=== PATIENT | female | born 1940 | race Caucasian/White ===

== ENCOUNTER 2022-07-06 13:00 | Inpatient (IN) | payer OTHER ==
[~2022-07-06] VITALS: Ht 154.9 cm; Wt 118.7 kg
[2022-07-06 14:26] LABS: Basophils # (auto) 0 10 ^3/uL (0-0.2); Basophils % (auto) 0.4 % (0.0-2.0); Eosinophils # (auto) 0 10 ^3/uL (0-0.8); Eosinophils % (auto) 0.1 % (0.0-7.0); Hemoglobin 14.4 g/dL (12.2-16.2); Lymphocytes # (auto) 0.7 10 ^3/uL (0.4-5.4); Lymphocytes % (auto) 13.5 % (10.0-50.0); Mean Corpuscular Hemoglobin 28.2 pg (28.0-32.0); Monocytes # (auto) 0.5 10 ^3/uL (0-1.3); Monocytes % (auto) 9.7 % (0.0-12.0); Neutrophils # (auto) 3.9 10 ^3/uL (1.6-8.6); Neutrophils % (auto) 76.3 % (37.0-80.0); Nucleated Red Blood Cells % 0.1 %; Red Blood Cells 5.11 10^6/uL (4.0-5.20); Red Cell Distribution Width 15.4 % (11.8-14.3); White Blood Cell 5.1 10^3/uL (4.4-10.8)
[2022-07-06 14:45] LABS: Calcium 8.2 mg/dL (8.5-10.1)
[2022-07-06 14:51] LABS: BUN/Creatinine Ratio 14.4 (10.0-20.0); Bilirubin, Total 0.8 mg/dL (0.2-1.0); Total Protein 6.1 g/dL (6.4-8.2)
[2022-07-06 14:53] LABS: Lactic Acid w/Reflex 2.8 mmol/L (0.4-2.0)
[2022-07-06 15:54] LABS: INR 1.05 (0.9-1.15); Partial Thromboplastin Time 28.2 sec (24.6-33.4)
[2022-07-06] MEDS ORDERED: POTASSIUM CHL 20 Meq TABLET PO ONE (16:00)
[2022-07-06] MEDS ORDERED: IOHEXOL 350 MG/ML 100ML IJ ONE (16:25)
[2022-07-06] MEDS ORDERED: SODIUM CHLORIDE 0.9% 500 ML IV ONE (20:15)
[2022-07-06] MEDS ORDERED: DEXTROSE (50%) 50ML SYRG IV PRN (22:30)
[2022-07-06] MEDS ORDERED: ONDANSETRON HCL 4 MG/2 ML VIAL IV PRN (22:30)
[2022-07-06] MEDS ORDERED: methylPREDNISolone SOD SUCC 125 MG/2 ML VL IV ONE (22:30)
[2022-07-06] MEDS ORDERED: DOCUSATE SOD 100 MG CAP PO PRN (22:30)
[2022-07-06] MEDS ORDERED: ACETAMINOPHEN 325 MG TAB PO PRN (22:30)
[2022-07-06] MEDS ORDERED: HYDROcodone-ACET 5/325MG TAB PO PRN (22:30)
[2022-07-06] MEDS ORDERED: CARVEDILOL 12.5 MG TAB PO ONE (22:45)
[2022-07-06] MEDS ORDERED: FUROSEMIDE 20 MG/2 ML VIAL IV ONE (22:45)
[2022-07-07] MEDS ORDERED: MORPHINE SULFATE INJ 2 MG/ml SYRG IV PRN
[2022-07-07] MEDS ORDERED: NITROGLYCERIN 0.4 MG SL TAB SL PRN
[2022-07-07 01:29] LABS: Urine Bacteria FEW /hpf (None Seen); Urine Blood Negative /uL (Negative); Urine Hyaline Cast FEW /lpf (0 - 2); Urine Specific Gravity 1.007 (1.001-1.035); Urine WBC <1 /hpf (0 - 5)
[2022-07-07] MEDS: InsuLIN REG 1unit/0.01ml Soln (100units/ml) SC SCH ×5 (01:57→23:31)
[2022-07-07] MEDS: ACCU-CHEK COMFORT CURVE STRIP VI SCH ×5 (06:09→23:21)
[2022-07-07] MEDS: SODIUM CHLOR 0.9% PF (SALINE LOCK) 10ML VIAL/SYR IV SCH ×3 (06:09→23:02)
[2022-07-07] MEDS: methylPREDNISolone SOD SUCC 40 MG/ML VL IV SCH ×3 (06:14→23:02)
[2022-07-07 07:08] LABS: Basophils # (auto) 0.1 10 ^3/uL (0-0.2); Basophils % (auto) 0.9 % (0.0-2.0); Eosinophils # (auto) 0 10 ^3/uL (0-0.8); Eosinophils % (auto) 0.4 % (0.0-7.0); Hematocrit 44.2 % (36.0-46.0); Hemoglobin 14.7 g/dL (12.2-16.2); Lymphocytes # (auto) 0.5 10 ^3/uL (0.4-5.4); Lymphocytes % (auto) 10.1 % (10.0-50.0); Mean Corpuscular Hgb Conc. 33.2 g/dL (32.0-36.0); Mean Corpuscular Volume 87.5 fL (80.0-100.0); Monocytes # (auto) 0.1 10 ^3/uL (0-1.3); Monocytes % (auto) 2.4 % (0.0-12.0); Neutrophils # (auto) 4.7 10 ^3/uL (1.6-8.6); Neutrophils % (auto) 86.2 % (37.0-80.0); Nucleated Red Blood Cells % 0.3 %; Red Blood Cells 5.05 10^6/uL (4.0-5.20); Red Cell Distribution Width 15.2 % (11.8-14.3); White Blood Cell 5.4 10^3/uL (4.4-10.8)
[2022-07-07 07:28] LABS: Albumin 2.7 g/dL (3.4-5.0); Calcium 8.1 mg/dL (8.5-10.1); Potassium 3.9 mmol/L (3.5-5.1)
[2022-07-07 07:32] LABS: BUN/Creatinine Ratio 18.3 (10.0-20.0); Bilirubin, Total 0.6 mg/dL (0.2-1.0); Total Protein 6.5 g/dL (6.4-8.2)
[2022-07-07] MEDS: FAMOTIDINE (10MG/ML) 2ML VL IV SCH (08:55)
[2022-07-07] MEDS: ASPirin 81 mg TAB PO SCH (08:55)
[2022-07-07] MEDS: CARVEDILOL 12.5 MG TAB PO SCH ×2 (08:56→23:03)
[2022-07-07] MEDS: ENOXAPARIN SOD 40 MG/0.4 ML SYRINGE SC SCH (08:57)
[2022-07-07 22:00] VITALS: BP 160/61
[2022-07-07 22:20] VITALS: BP 149/58
[2022-07-07] MEDS ORDERED: POTA-264 PO (22:41)
[2022-07-07] MEDS ORDERED: INSREG3 SC (22:41)
[2022-07-07] MEDS ORDERED: CLOP75TA70 PO (22:41)
[2022-07-07] MEDS ORDERED: ATEN50TA PO (22:41)
[2022-07-07] MEDS ORDERED: LOSA-39 PO (22:41)
[2022-07-07] MEDS ORDERED: MONT-8 PO (22:41)
[2022-07-07] MEDS ORDERED: FUR20T PO (22:41)
[2022-07-07] MEDS ORDERED: DILT60TA2 PO (22:41)
[2022-07-07] MEDS ORDERED: ATOR40TA52 PO (22:41)
[2022-07-07] MEDS ORDERED: GABA300C10 PO (22:41)
[2022-07-07 23:01] VITALS: BP 149/58
[2022-07-07] MEDS: ATORVASTATIN 20 MG TAB PO SCH (23:02)
[2022-07-08 05:00] VITALS: BP 136/62
[2022-07-08] MEDS: SODIUM CHLOR 0.9% PF (SALINE LOCK) 10ML VIAL/SYR IV SCH ×3 (05:28→22:26)
[2022-07-08] MEDS: methylPREDNISolone SOD SUCC 40 MG/ML VL IV SCH ×3 (05:28→22:21)
[2022-07-08] MEDS: ACCU-CHEK COMFORT CURVE STRIP VI SCH ×4 (05:34→23:53)
[2022-07-08] MEDS: InsuLIN REG 1unit/0.01ml Soln (100units/ml) SC SCH ×3 (05:42→17:37)
[2022-07-08 08:30] VITALS: BP 148/70
[2022-07-08] MEDS: ASPirin 81 mg TAB PO SCH (09:29)
[2022-07-08] MEDS: CARVEDILOL 12.5 MG TAB PO SCH ×2 (09:31→22:22)
[2022-07-08] MEDS: FAMOTIDINE (10MG/ML) 2ML VL IV SCH (09:31)
[2022-07-08] MEDS: ENOXAPARIN SOD 40 MG/0.4 ML SYRINGE SC SCH (09:31)
[2022-07-08 12:30] VITALS: BP 163/62
[2022-07-08 16:45] VITALS: BP 182/79
[2022-07-08] MEDS: hydrALAZINE HCL 20 MG/ML VL IV PRN (17:32)
[2022-07-08 20:52] VITALS: BP 182/79
[2022-07-08 22:00] VITALS: BP 132/57
[2022-07-08] MEDS: ATORVASTATIN 20 MG TAB PO SCH (22:21)
[2022-07-08] MEDS: AZITHROMYCIN 500MG/ 250ML 250 ML IV SCH (22:26)
[2022-07-08] MEDS: ALBUTEROL SULF 2.5 MG/0.5ML(0.5%) NEB SOLN NEB PRN (23:50)
[2022-07-08] MEDS: IPRATROPIUM BROM 0.5 MG/2.5ML INH SOL NEB PRN (23:50)
[2022-07-09] VITALS (8 sets, daily range): BP systolic 137–178; BP diastolic 57–75
[2022-07-09] MEDS: InsuLIN REG 1unit/0.01ml Soln (100units/ml) SC SCH ×5 (00:02→21:59)
[2022-07-09] MEDS: ACCU-CHEK COMFORT CURVE STRIP VI SCH ×3 (05:57→17:50)
[2022-07-09] MEDS: SODIUM CHLOR 0.9% PF (SALINE LOCK) 10ML VIAL/SYR IV SCH ×3 (06:17→22:10)
[2022-07-09] MEDS: methylPREDNISolone SOD SUCC 40 MG/ML VL IV SCH ×3 (06:17→22:05)
[2022-07-09] MEDS: hydrALAZINE HCL 20 MG/ML VL IV PRN ×2 (07:20→17:50)
[2022-07-09] MEDS: AZITHROMYCIN 500MG/ 250ML 250 ML IV SCH (09:28)
[2022-07-09] MEDS: FAMOTIDINE (10MG/ML) 2ML VL IV SCH (09:28)
[2022-07-09] MEDS: ASPirin 81 mg TAB PO SCH (09:28)
[2022-07-09] MEDS: CARVEDILOL 12.5 MG TAB PO SCH ×2 (09:29→22:05)
[2022-07-09] MEDS: ENOXAPARIN SOD 40 MG/0.4 ML SYRINGE SC SCH (10:00)
[2022-07-09] MEDS ORDERED: InsuLIN REG 1unit/0.01ml Soln (100units/ml) SC ONE (12:15)
[2022-07-09] MEDS ORDERED: guaiFENesin-DM 100/10mg/5ml SYR PO PRN (12:30)
[2022-07-09] MEDS: ALBUTEROL SULF 2.5 MG/0.5ML(0.5%) NEB SOLN NEB PRN (18:57)
[2022-07-09] MEDS: IPRATROPIUM BROM 0.5 MG/2.5ML INH SOL NEB PRN (18:57)
[2022-07-09] MEDS: INSULIN LANTUS (GLARGINE) 1 /0.01ml (100units/ml) SC SCH (21:51)
[2022-07-09] MEDS: ATORVASTATIN 20 MG TAB PO SCH (22:05)
[2022-07-10] MEDS: IPRATROPIUM BROM 0.5 MG/2.5ML INH SOL NEB PRN ×3 (00:24→22:49)
[2022-07-10] MEDS: ALBUTEROL SULF 2.5 MG/0.5ML(0.5%) NEB SOLN NEB PRN ×3 (00:24→22:49)
[2022-07-10 05:00] VITALS: BP 169/63
[2022-07-10] MEDS: InsuLIN REG 1unit/0.01ml Soln (100units/ml) SC SCH ×3 (05:53→18:12)
[2022-07-10] MEDS: SODIUM CHLOR 0.9% PF (SALINE LOCK) 10ML VIAL/SYR IV SCH ×3 (05:56→21:37)
[2022-07-10] MEDS: methylPREDNISolone SOD SUCC 40 MG/ML VL IV SCH ×3 (05:56→21:37)
[2022-07-10] MEDS: ACCU-CHEK COMFORT CURVE STRIP VI SCH ×4 (06:00→18:13)
[2022-07-10 06:40] LABS: BUN/Creatinine Ratio 38.9 (10.0-20.0); Calcium 8.7 mg/dL (8.5-10.1); Potassium 4.4 mmol/L (3.5-5.1)
[2022-07-10 09:00] VITALS: BP 155/67
[2022-07-10] MEDS: ENOXAPARIN SOD 40 MG/0.4 ML SYRINGE SC SCH (10:12)
[2022-07-10] MEDS: ASPirin 81 mg TAB PO SCH (10:12)
[2022-07-10] MEDS: AZITHROMYCIN 500MG/ 250ML 250 ML IV SCH (10:14)
[2022-07-10] MEDS: CARVEDILOL 12.5 MG TAB PO SCH ×2 (10:14→21:38)
[2022-07-10 13:00] VITALS: BP 171/78
[2022-07-10 17:00] VITALS: BP 168/76
[2022-07-10] MEDS: ATORVASTATIN 20 MG TAB PO SCH (21:37)
[2022-07-10] MEDS: INSULIN LANTUS (GLARGINE) 1 /0.01ml (100units/ml) SC SCH (21:39)
[2022-07-10 22:00] VITALS: BP 154/67
[2022-07-11] MEDS: ACCU-CHEK COMFORT CURVE STRIP VI SCH ×5 (00:02→23:57)
[2022-07-11] MEDS: hydrALAZINE HCL 20 MG/ML VL IV PRN ×2 (00:02→07:47)
[2022-07-11] MEDS: InsuLIN REG 1unit/0.01ml Soln (100units/ml) SC SCH ×5 (00:04→23:56)
[2022-07-11] MEDS: IPRATROPIUM BROM 0.5 MG/2.5ML INH SOL NEB PRN ×2 (04:45→20:42)
[2022-07-11] MEDS: ALBUTEROL SULF 2.5 MG/0.5ML(0.5%) NEB SOLN NEB PRN ×2 (04:45→20:42)
[2022-07-11 05:00] VITALS: BP 163/71
[2022-07-11 05:18] VITALS: BP 146/57
[2022-07-11] MEDS: SODIUM CHLOR 0.9% PF (SALINE LOCK) 10ML VIAL/SYR IV SCH ×3 (06:12→22:09)
[2022-07-11] MEDS: methylPREDNISolone SOD SUCC 40 MG/ML VL IV SCH ×3 (06:12→22:10)
[2022-07-11 09:00] VITALS: BP 184/81
[2022-07-11] MEDS: ASPirin 81 mg TAB PO SCH (10:06)
[2022-07-11] MEDS: CARVEDILOL 12.5 MG TAB PO SCH ×2 (10:07→22:12)
[2022-07-11] MEDS: ENOXAPARIN SOD 40 MG/0.4 ML SYRINGE SC SCH (10:07)
[2022-07-11 13:00] VITALS: BP 127/21
[2022-07-11 17:00] VITALS: BP 145/69
[2022-07-11 22:00] VITALS: BP 149/71
[2022-07-11] MEDS: dilTIAZem HCL 60 MG TAB PO SCH (22:11)
[2022-07-11] MEDS: ATORVASTATIN 20 MG TAB PO SCH (22:12)
[2022-07-11] MEDS: MONTELUKAST SODIUM 10 MG TAB PO SCH (22:12)
[2022-07-11] MEDS: INSULIN LANTUS (GLARGINE) 1 /0.01ml (100units/ml) SC SCH (23:56)
[2022-07-12 00:25] VITALS: BP 120/48
[2022-07-12 05:00] VITALS: BP 131/50
[2022-07-12] MEDS: SODIUM CHLOR 0.9% PF (SALINE LOCK) 10ML VIAL/SYR IV SCH ×3 (06:46→22:08)
[2022-07-12] MEDS: methylPREDNISolone SOD SUCC 40 MG/ML VL IV SCH ×3 (06:46→22:08)
[2022-07-12] MEDS: ACCU-CHEK COMFORT CURVE STRIP VI SCH ×3 (06:47→18:21)
[2022-07-12] MEDS: InsuLIN REG 1unit/0.01ml Soln (100units/ml) SC SCH ×3 (06:48→18:21)
[2022-07-12 09:00] VITALS: BP 160/68
[2022-07-12] MEDS ORDERED: ATENOLOL 50 MG TAB PO SCH (10:00)
[2022-07-12] MEDS: POTASSIUM CHL 10 Meq TABLET PO SCH (11:18)
[2022-07-12] MEDS: GABAPENTIN 300 MG CAP PO SCH (11:18)
[2022-07-12] MEDS: LOSARTAN POTASSIUM 50 MG TAB PO SCH (11:20)
[2022-07-12] MEDS: ASPirin 81 mg TAB PO SCH (11:20)
[2022-07-12] MEDS: CLOPIDOGREL BISULFATE 75 MG TAB PO SCH (11:20)
[2022-07-12] MEDS: dilTIAZem HCL 60 MG TAB PO SCH ×2 (11:20→22:09)
[2022-07-12] MEDS: ENOXAPARIN SOD 40 MG/0.4 ML SYRINGE SC SCH (11:21)
[2022-07-12] MEDS: CARVEDILOL 12.5 MG TAB PO SCH ×2 (11:21→22:10)
[2022-07-12] MEDS: FUROSEMIDE 20 MG TAB PO SCH (11:22)
[2022-07-12 13:14] VITALS: BP 127/54
[2022-07-12 16:34] VITALS: BP 132/52
[2022-07-12 22:00] VITALS: BP 144/58
[2022-07-12] MEDS: ATORVASTATIN 20 MG TAB PO SCH (22:10)
[2022-07-12] MEDS: MONTELUKAST SODIUM 10 MG TAB PO SCH (22:10)
[2022-07-13] MEDS: INSULIN LANTUS (GLARGINE) 1 /0.01ml (100units/ml) SC SCH ×2 (00:04→21:55)
[2022-07-13] MEDS: ACCU-CHEK COMFORT CURVE STRIP VI SCH ×4 (00:06→18:00)
[2022-07-13] MEDS: InsuLIN REG 1unit/0.01ml Soln (100units/ml) SC SCH ×4 (00:07→18:00)
[2022-07-13 05:00] VITALS: BP 127/48
[2022-07-13] MEDS: SODIUM CHLOR 0.9% PF (SALINE LOCK) 10ML VIAL/SYR IV SCH ×3 (06:01→21:57)
[2022-07-13] MEDS: methylPREDNISolone SOD SUCC 40 MG/ML VL IV SCH ×3 (06:01→21:56)
[2022-07-13 08:30] VITALS: BP 153/61
[2022-07-13] MEDS: ENOXAPARIN SOD 40 MG/0.4 ML SYRINGE SC SCH (10:38)
[2022-07-13] MEDS: FUROSEMIDE 20 MG TAB PO SCH (10:39)
[2022-07-13] MEDS: POTASSIUM CHL 10 Meq TABLET PO SCH (10:39)
[2022-07-13] MEDS: CLOPIDOGREL BISULFATE 75 MG TAB PO SCH (10:39)
[2022-07-13] MEDS: ASPirin 81 mg TAB PO SCH (10:39)
[2022-07-13] MEDS: CARVEDILOL 12.5 MG TAB PO SCH ×2 (10:40→21:57)
[2022-07-13] MEDS: LOSARTAN POTASSIUM 50 MG TAB PO SCH (10:41)
[2022-07-13] MEDS: GABAPENTIN 300 MG CAP PO SCH (10:42)
[2022-07-13] MEDS: dilTIAZem HCL 60 MG TAB PO SCH ×2 (10:42→21:56)
[2022-07-13 12:30] VITALS: BP 136/54
[2022-07-13 17:00] VITALS: BP 102/66
[2022-07-13] MEDS: ATORVASTATIN 20 MG TAB PO SCH (21:57)
[2022-07-13] MEDS: MONTELUKAST SODIUM 10 MG TAB PO SCH (21:57)
[2022-07-13 22:46] VITALS: BP 143/57
[2022-07-14] MEDS: InsuLIN REG 1unit/0.01ml Soln (100units/ml) SC SCH ×3 (00:39→12:00)
[2022-07-14 05:00] VITALS: BP 104/56
[2022-07-14] MEDS: SODIUM CHLOR 0.9% PF (SALINE LOCK) 10ML VIAL/SYR IV SCH ×2 (05:54→15:18)
[2022-07-14] MEDS: ACCU-CHEK COMFORT CURVE STRIP VI SCH ×3 (05:54→12:23)
[2022-07-14] MEDS: methylPREDNISolone SOD SUCC 40 MG/ML VL IV SCH ×2 (05:54→15:18)
[2022-07-14 06:29] LABS: Basophils # (auto) 0 10 ^3/uL (0-0.2); Basophils % (auto) 0.2 % (0.0-2.0); Eosinophils # (auto) 0 10 ^3/uL (0-0.8); Hematocrit 44.7 % (36.0-46.0); Hemoglobin 14.7 g/dL (12.2-16.2); Lymphocytes # (auto) 0.9 10 ^3/uL (0.4-5.4); Lymphocytes % (auto) 7.3 % (10.0-50.0); Mean Corpuscular Hemoglobin 28.4 pg (28.0-32.0); Mean Corpuscular Hgb Conc. 32.9 g/dL (32.0-36.0); Mean Corpuscular Volume 86.2 fL (80.0-100.0); Monocytes # (auto) 0.5 10 ^3/uL (0-1.3); Monocytes % (auto) 4.4 % (0.0-12.0); Neutrophils # (auto) 10.9 10 ^3/uL (1.6-8.6); Neutrophils % (auto) 88.1 % (37.0-80.0); Red Blood Cells 5.18 10^6/uL (4.0-5.20); Red Cell Distribution Width 14.4 % (11.8-14.3); White Blood Cell 12.4 10^3/uL (4.4-10.8)
[2022-07-14 07:30] LABS: Potassium 4.4 mmol/L (3.5-5.1)
[2022-07-14 07:45] LABS: BUN/Creatinine Ratio 39.4 (10.0-20.0)
[2022-07-14 08:30] VITALS: BP 151/69
[2022-07-14] MEDS: FUROSEMIDE 20 MG TAB PO SCH (09:49)
[2022-07-14] MEDS: CLOPIDOGREL BISULFATE 75 MG TAB PO SCH (09:49)
[2022-07-14] MEDS: ASPirin 81 mg TAB PO SCH (09:49)
[2022-07-14] MEDS: dilTIAZem HCL 60 MG TAB PO SCH (09:49)
[2022-07-14] MEDS: GABAPENTIN 300 MG CAP PO SCH (09:50)
[2022-07-14] MEDS: ENOXAPARIN SOD 40 MG/0.4 ML SYRINGE SC SCH (09:50)
[2022-07-14] MEDS: LOSARTAN POTASSIUM 50 MG TAB PO SCH (09:50)
[2022-07-14] MEDS: CARVEDILOL 12.5 MG TAB PO SCH (09:50)
[2022-07-14] MEDS: POTASSIUM CHL 10 Meq TABLET PO SCH (09:52)
[2022-07-14 12:30] VITALS: BP 150/72
[2022-07-14] MEDS ORDERED: METH4PAK PO ×2 (12:46)
[2022-07-14] MEDS ORDERED: CAR125T PO (12:46)
[2022-07-14] MEDS ORDERED: AZIT250T8 PO (12:46)
[2022-07-14 13:48] VITALS: BP 151/69
== END 2022-07-14 16:31 | disposition home or self-care (01) | DRG 189 ==
LOC: ER 13:00 → EDBD 13:00 → TELE 23:47 → TELE-EAST 07-07 22:00
PROVIDERS: ADMIT Nurse Practitioner Family; ATTEND Internal Medicine
DX: J96.01 Acute respiratory failure with hypoxia (principal); Z68.42 Body mass index [BMI] 45.0-49.9, adult; J44.1 Chronic obstructive pulmonary disease with (acute) exacerbation; I47.1 Supraventricular tachycardia; J98.11 Atelectasis; D69.6 Thrombocytopenia, unspecified; E66.01 Morbid (severe) obesity due to excess calories; E87.6 Hypokalemia; E88.09 Other disorders of plasma-protein metabolism, not elsewhere classified; I27.20 Pulmonary hypertension, unspecified; R79.89 Other specified abnormal findings of blood chemistry; Z20.822 Contact with and (suspected) exposure to COVID-19; E11.9 Type 2 diabetes mellitus without complications; I10 Essential (primary) hypertension; Z79.899 Other long term (current) drug therapy; Z86.73 Personal history of transient ischemic attack (TIA), and cerebral infarction without residual deficits; Z90.710 Acquired absence of both cervix and uterus
CPT/HCPCS: 36415; 36600; 71045; 71275; 80048; 80053; 81001; 82805; 82962; 83036; 83605; 83735; 83880; 84484; 85025; 85379; 85610; 85730; 87040; 87426; 87804; 93005; 94640; 97110; 97116; 97163; 97530; G0378; J1815; J3490